=== PATIENT | female | born 1965 | race Caucasian/White ===

== ENCOUNTER 2016-11-12 10:12 | Outpatient (CLI) | payer BC ==
--- NOTE | 2016-11-12 11:49 | DIAGNOSTIC IMAGING REPORT ---
PROCEDURE: CT SINUS/FACIAL BONES W/O CONT CLINICAL INDICATION: CHRONIC SINUSITIS TECHNIQUE: Noncontrast axial CT images through the sinuses. Coronal and sagittal reformations were created. COMPARISON: None. FINDINGS: The frontal sinuses are normally aerated. The outflow tracts are patent. Sphenoid sinuses and their outflow tracts are patent. No mucosal thickening throughout the ethmoid air cells without complete opacification. The maxillary sinuses are normally aerated with no mucosal thickening. The outflow tracts are patent. The nasal septum is midline without significant spurring. Nasal passages are patent with normal nasal turbinate morphology. No facial bone fractures. Temporomandibular joints are normally aligned. Bony orbits are intact. Orbital soft tissues appear normal. Facial soft tissues and visible glandular structures are symmetric. IMPRESSION: 1. Normal All CT scans at this facility use dose modulation, iterative reconstruction, and/or weight-based dosing when appropriate to reduce radiation dose to as low as reasonably achievable.
== END 2016-11-12 23:00 | disposition home or self-care (01) ==
LOC: CT SRH 10:12
DX: J32.9 Chronic sinusitis, unspecified (principal)